=== PATIENT | male | born 1950 | race Two or more races ===

== ENCOUNTER 2018-08-08 10:40 | Emergency (ER) | payer MEDICARE, OTHER, MEDICAID ==
[~2018-08-08] VITALS: Ht 170.2 cm; Wt 73.0 kg
[2018-08-08] MEDS ORDERED: SODIUM CHLORIDE 0.9% 1,000 ML IV ONE (11:45)
[2018-08-08] MEDS ORDERED: ONDANSETRON HCL 4 MG/2 ML VIAL IV ONE (11:45)
[2018-08-08] MEDS ORDERED: KETOROLAC TROMETH 30 MG/ML 1ML VIAL IV ONE (11:45)
[2018-08-08 11:55] LABS: Urine WBC None Seen /hpf (0 - 3)
[2018-08-08 12:00] LABS: Urine Bacteria NONE SEEN /hpf (None Seen); Urine Blood Negative /uL (Negative); Urine Specific Gravity 1.011 (1.001-1.035)
[2018-08-08 12:02] LABS: Basophils # (auto) 0 uL; Basophils % (auto) 0.4 % (0.0-2.0); Eosinophils # (auto) 0 uL; Eosinophils % (auto) 0.9 % (0.0-7.0); Hemoglobin 14.6 g/dL (13.5-17.5); Lymphocytes % (auto) 20.5 % (10.0-50.0); Mean Corpuscular Hemoglobin 32.4 pg (28.0-32.0); Mean Corpuscular Volume 95.2 fL (80.0-100.0); Monocytes # (auto) 0.4 uL; Monocytes % (auto) 8.9 % (0.0-12.0); Neutrophils # (auto) 3.4 uL; Neutrophils % (auto) 69.3 % (37.0-80.0); Platelet Count (auto) 135 10^3/uL (140-450); Red Blood Cells 4.52 10^6/uL (4.5-5.90); White Blood Cell 4.9 10^3/uL (4.4-10.8)
[2018-08-08 12:20] LABS: Alanine Aminotransferase 15 U/L (16-61); Albumin 3.6 g/dL (3.4-5.0); Amylase 46 U/L (25-115); Anion Gap 6 (5-15); Blood Urea Nitrogen 14 mg/dL (7-18); Calcium 8.2 mg/dL (8.5-10.1); Carbon Dioxide 27 mmol/L (21-32); Chloride 104 mmol/L (98-107); Glucose 100 mg/dL (74-106); Lipase 74 U/L (73-393); Potassium 4.5 mmol/L (3.5-5.1); Sodium 137 mmol/L (136-145)
[2018-08-08 12:25] LABS: Alkaline Phosphatase 64 U/L (45-117); Aspartate Aminotransferase 10 U/L (15-37); Bilirubin, Total 0.4 mg/dL (0.2-1.0); GFR African American 136 mL/min; GFR Non-African American 112 mL/min
[2018-08-08 13:30] VITALS: BP 136/57
[2018-08-08 13:56] LABS: BUN/Creatinine Ratio 18.9
[2018-08-08 14:20] LABS: INR 0.98 (0.9-1.15); Partial Thromboplastin Time 28.8 sec (23.78-33.04); Prothrombin Time 10.5 sec (9.27-12.13)
== END 2018-08-08 14:17 | disposition home or self-care (01) ==
LOC: ER 10:41
DX: K76.9 Liver disease, unspecified (principal); I10 Essential (primary) hypertension; F17.210 Nicotine dependence, cigarettes, uncomplicated
CPT/HCPCS: 36415; 74176; 76705; 80053; 80320; 81001; 82150; 83605; 83690; 84484; 85025; 85610; 85730; 87040; 93005; 96361; 96374; 96375; 99284; J1885; J2405; J7030

== ENCOUNTER 2018-09-15 14:30 | Emergency (ER) | payer MEDICARE, MEDICAID ==
[~2018-09-15] VITALS: Ht 170.2 cm; Wt 72.6 kg
[2018-09-15 14:59] VITALS: BP 135/57
[2018-09-15] MEDS ORDERED: HYDROcodone-ACET 5/325MG TAB PO ONE (15:15)
[2018-09-15] MEDS ORDERED: KETOROLAC TROMETH 60MG/2ML VIAL IM ONE (15:45)
== END 2018-09-15 17:16 | disposition home or self-care (01) ==
LOC: ER 14:30
DX: K11.20 Sialoadenitis, unspecified (principal); F17.210 Nicotine dependence, cigarettes, uncomplicated
CPT/HCPCS: 70486; 96372; 99284; J1885

== ENCOUNTER 2018-10-04 09:37 | Emergency (ER) | payer MEDICARE, MEDICAID ==
[~2018-10-04] VITALS: Ht 170.2 cm; Wt 70.3 kg
[2018-10-04 09:54] VITALS: BP 135/85
[2018-10-04] MEDS ORDERED: cefTRIAXone SOD 1,000 MG VL IM ONE (10:15)
[2018-10-04] MEDS ORDERED: IBUPROFEN 800 MG TAB PO ONE (10:15)
== END 2018-10-04 10:31 | disposition home or self-care (01) ==
LOC: ER 09:37
DX: K04.7 Periapical abscess without sinus (principal); I10 Essential (primary) hypertension; F17.210 Nicotine dependence, cigarettes, uncomplicated
CPT/HCPCS: 96372; 99283; J0696

== ENCOUNTER 2019-12-15 12:43 | Inpatient (IN) | payer OTHER, MEDICAID ==
[~2019-12-15] VITALS: Ht 167.6 cm; Wt 59.0 kg
[2019-12-15] MEDS ORDERED: SODIUM CHLORIDE 0.9% 1,000 ML IV ONE (12:57)
[2019-12-15 14:09] LABS: Basophils # (auto) 0 10 ^3/uL (0-0.2); Eosinophils # (auto) 0 10 ^3/uL (0-0.8); Lymphocytes # (auto) 0.4 10 ^3/uL (0.4-5.4); Monocytes # (auto) 0.4 10 ^3/uL (0-1.3); Neutrophils # (auto) 2.7 10 ^3/uL (1.6-8.6); Neutrophils % (auto) 76.3 % (37.0-80.0)
[2019-12-15 14:11] LABS: Basophils % (auto) 0.4 % (0.0-2.0); Eosinophils % (auto) 1.1 % (0.0-7.0); Hematocrit 31.4 % (41.0-53.0); Hemoglobin 10.6 g/dL (13.5-17.5); Lymphocytes % (auto) 10.5 % (10.0-50.0); Mean Corpuscular Hemoglobin 34.1 pg (28.0-32.0); Mean Corpuscular Hgb Conc. 33.7 g/dL (32.0-36.0); Mean Corpuscular Volume 101.1 fL (80.0-100.0); Monocytes % (auto) 11.7 % (0.0-12.0); Nucleated Red Blood Cells % 0.3 %; Platelet Count (auto) 141 10^3/uL (140-450); Red Blood Cells 3.11 10^6/uL (4.5-5.90); White Blood Cell 3.5 10^3/uL (4.4-10.8)
[2019-12-15 14:23] LABS: INR 1.03 (0.9-1.15); Partial Thromboplastin Time 26.6 sec (23.0-31.2)
[2019-12-15 14:32] LABS: Albumin 3.1 g/dL (3.4-5.0); Anion Gap 3 (5-15); Blood Urea Nitrogen 21 mg/dL (7-18); Calcium 9.2 mg/dL (8.5-10.1); Carbon Dioxide 31 mmol/L (21-32); Chloride 103 mmol/L (98-107); Glucose 109 mg/dL (74-106); Potassium 3.9 mmol/L (3.5-5.1); Sodium 137 mmol/L (136-145)
[2019-12-15 14:37] LABS: Alanine Aminotransferase 20 U/L (16-61); Alkaline Phosphatase 99 U/L (45-117); Aspartate Aminotransferase 18 U/L (15-37); BUN/Creatinine Ratio 35.6; Bilirubin, Total 0.6 mg/dL (0.2-1.0); GFR African American 176 mL/min; GFR Non-African American 146 mL/min; Total Protein 7.7 g/dL (6.4-8.2)
[2019-12-15] MEDS ORDERED: LACTATED RINGER'S 1,000 ML IV ONE (15:45)
[2019-12-15] MEDS ORDERED: CYANOCOBALAMIN (B-12) 1000 MCG/1 ML VIAL IM ONE ×2 (15:45→16:00)
[2019-12-15] MEDS ORDERED: METOCLOPRAMIDE HCL 5MG/ml INJ 2ml VIAL IV PRN (16:00)
[2019-12-15] MEDS ORDERED: CLINDAMYCIN 600MG IV 50 ML IV ONE (16:00)
[2019-12-15] MEDS ORDERED: MORPHINE SULF INJ 2 MG/ML SYRINGE 1ML IV PRN ×2 (16:00)
[2019-12-15] MEDS ORDERED: NITROGLYCERIN 0.4 MG SL TAB SL PRN (16:00)
[2019-12-15] MEDS: D5W/SOD CHLO 0.9% 1,000 ML IV SCH (16:45)
[2019-12-15 16:55] LABS: Folate (Folic Acid) > 24.00 ng/mL (5.38-24)
[2019-12-15] MEDS ORDERED: cefTRIAXone 1GM/50ML D5W 50 ML IV ONE (17:00)
[2019-12-15] MEDS ORDERED: CITA10SO4 GT (17:45)
[2019-12-15] MEDS ORDERED: MORP20SO17 GT (17:45)
[2019-12-15 18:58] LABS: Cholesterol 122 mg/dL (< 200); HDL Cholesterol 46 mg/dL (40-59); LDL Cholesterol 68 mg/dL (< 100); Triglycerides 78 mg/dL (< 150)
[2019-12-15] MEDS: CLINDAMYCIN 600MG IV 50 ML IV SCH (21:38)
[2019-12-16] MEDS: CLINDAMYCIN 600MG IV 50 ML IV SCH (05:42)
[2019-12-16] MEDS: D5W/SOD CHLO 0.9% 1,000 ML IV SCH (06:05)
[2019-12-16] MEDS ORDERED: CITALOPRAM HYDROBR 20 MG TAB GT SCH (07:00)
[2019-12-16] MEDS ORDERED: cefTRIAXone 1GM/50ML D5W 50 ML IV SCH (09:00)
[2019-12-16 11:39] VITALS: BP 111/72
--- NOTE | 2019-12-16 16:42 | NUR ---
1630 -12/16/19 - 1630 12/16/19 - Contacted [employer] at [phone], requesting authorization for inpatient stay. Spoke with clerk analyst Cindi who stated patient was admitted via the ER and authorization would be sent via hard copy.
== END 2019-12-16 11:29 | disposition short-term general hospital (02) | DRG 393 ==
LOC: ER 12:43 → TELE 12:44
PROVIDERS: ADMIT Hospitalist; ATTEND Family Medicine
DX: Z43.1 Encounter for attention to gastrostomy (principal); J69.0 Pneumonitis due to inhalation of food and vomit; F03.90 Unspecified dementia, unspecified severity, without behavioral disturbance, psychotic disturbance, mood disturbance, and anxiety; C10.9 Malignant neoplasm of oropharynx, unspecified; K70.30 Alcoholic cirrhosis of liver without ascites; F32.9 Major depressive disorder, single episode, unspecified; G40.909 Epilepsy, unspecified, not intractable, without status epilepticus; Y83.3 Surgical operation with formation of external stoma as the cause of abnormal reaction of the patient, or of later complication, without mention of misadventure at the time of the procedure; Z20.828 Contact with and (suspected) exposure to other viral communicable diseases; F10.10 Alcohol abuse, uncomplicated; F17.210 Nicotine dependence, cigarettes, uncomplicated; I10 Essential (primary) hypertension; Z51.5 Encounter for palliative care; Z66 Do not resuscitate; Z85.818 Personal history of malignant neoplasm of other sites of lip, oral cavity, and pharynx
CPT/HCPCS: 36415; 71045; 80053; 80061; 82607; 82746; 82962; 83036; 84484; 85025; 85610; 85730; 87040; 87426; G0378; J0696; J3490